=== PATIENT | female | born 1995 | race African-American/Black ===

== ENCOUNTER 2017-07-09 15:09 | Emergency (ER) | payer SELFPAY ==
[~2017-07-09] VITALS: Ht 162.6 cm; Wt 83.9 kg
[2017-07-09 15:46] VITALS: BP 129/82
== END 2017-07-09 17:00 | disposition home or self-care (01) ==
LOC: ER 15:09
DX: S86.812A Strain of other muscle(s) and tendon(s) at lower leg level, left leg, initial encounter (principal); X58.XXXA Exposure to other specified factors, initial encounter; Y93.89 Activity, other specified; Y99.8 Other external cause status; Y92.89 Other specified places as the place of occurrence of the external cause
CPT/HCPCS: 93971

== ENCOUNTER 2017-12-02 08:59 | Emergency (ER) | payer MEDICAID ==
[~2017-12-02] VITALS: Ht 162.6 cm; Wt 86.2 kg
[2017-12-02 09:41] VITALS: BP 138/58
[2017-12-02] MEDS ORDERED: KETOROLAC TROMETH 60MG/2ML VIAL IM ONE (10:45)
== END 2017-12-02 09:36 | disposition home or self-care (01) ==
LOC: ER 08:59
DX: M54.5 Low back pain (principal); N39.0 Urinary tract infection, site not specified
CPT/HCPCS: 74176; 96372; 99284; J1885

== ENCOUNTER 2018-04-21 08:31 | Emergency (ER) | payer SELFPAY ==
[~2018-04-21] VITALS: Ht 165.1 cm; Wt 88.5 kg
[2018-04-21 08:39] VITALS: BP 115/90
== END 2018-04-21 11:58 | disposition home or self-care (01) ==
LOC: ER 08:31
DX: S63.91XA Sprain of unspecified part of right wrist and hand, initial encounter (principal); S56.911A Strain of unspecified muscles, fascia and tendons at forearm level, right arm, initial encounter; X58.XXXA Exposure to other specified factors, initial encounter; Y93.89 Activity, other specified; Y99.8 Other external cause status; Y92.89 Other specified places as the place of occurrence of the external cause
CPT/HCPCS: 73130

== ENCOUNTER 2020-08-11 13:14 | Emergency (ER) | payer MEDICAID, OTHER ==
[~2020-08-11] VITALS: Ht 162.6 cm; Wt 108.9 kg
[2020-08-11 16:00] VITALS: BP 127/74
[2020-08-11] MEDS ORDERED: IBUPROFEN 800 MG TAB PO ONE (16:45)
== END 2020-08-11 17:01 | disposition home or self-care (01) ==
LOC: EDBD 13:14 → ER 13:14
DX: S16.1XXA Strain of muscle, fascia and tendon at neck level, initial encounter (principal); S29.012A Strain of muscle and tendon of back wall of thorax, initial encounter; Z77.22 Contact with and (suspected) exposure to environmental tobacco smoke (acute) (chronic); V43.52XA Car driver injured in collision with other type car in traffic accident, initial encounter; Y93.89 Activity, other specified; Y92.488 Other paved roadways as the place of occurrence of the external cause; Y99.8 Other external cause status
CPT/HCPCS: 72040; 72070